=== PATIENT | female | born 1950 | race Caucasian/White ===

== ENCOUNTER 2024-07-17 11:54 | Emergency (ER) | payer OTHER, SELFPAY ==
--- NOTE | 2024-07-17 | ECG_ITS ---
Test Reason : CHEST PAIN Blood Pressure : / mmHG Vent. Rate : 063 BPM Atrial Rate : 063 BPM P-R Int : 142 ms QRS Dur : 074 ms QT Int : 440 ms P-R-T Axes : 044 044 013 degrees QTc Int : 450 ms Normal sinus rhythm Cannot rule out Anterior infarct , age undetermined Abnormal ECG No previous ECGs available Referred By: Generic ED Physician Electronically Signed By:SONYA HYATT MD
--- NOTE | ~2024-07-17 | XR_ITS ---
EXAMINATION: XR CHEST CLINICAL INFORMATION: Chest pain COMPARISON: None available. TECHNIQUE: Frontal view of the chest was obtained. FINDINGS: There is mild elevation of the left diaphragm. Patient is rotated slightly to the left. Heart size upper limits of normal. No infiltrates, effusions or lung masses are seen. XR/XR chest 1V IMPRESSION: No acute intrathoracic disease. Electronically signed by: Carlitos Benoit MD 07/17/2024 03:31 PM [facility]
[2024-07-17 12:03] VITALS: BP 129/77; BP 139/61; PULSE 60; PULSE 65; RESP 18; TEMP 36.6; O2SAT 98; BMI 27.4
--- NOTE | 2024-07-17 12:58 | ED_ITS ---
HPI - Chest Pain General Chief Complaint: Chest Pain Stated Complaint: CHEST PAIN/HEAVY BREATHING PER EMS Time Seen by Provider: 07/17/24 12:57 Source: patient, family (daughter), EMS and RN notes reviewed Mode of arrival: EMS Limitations: no limitations History of Present Illness ED Provider: Jesse HPI narrative: Patient is a 74-year-old female with history of dementia, paranoid delusions, COPD/emphysema, T2DM, chronic respiratory failure with hypoxia presenting to the ED from [facility] after an episode of chest pain/pressure and shortness of breath. Patient states that since her oxygen via [place] was decreased at [facility], she has been more short of breath. She also notes that the staff at [facility] are not bringing her inhalers as scheduled. She was given a breathing treatment and 324mg ASA prior to arrival, and patient states chest pain resolved with the ASA and has not returned since. She denies current shortness of breath. Daughter and HCP, is at bedside and reports that patient was recently admitted at [facility], at which time they placed her on a medication vacation, because she was taking medications from several different providers, none of whom were aware of each other. Daughter feels patient is not being cared for appropriately at [facility], is concerned she is not getting her medications as prescribed. MD complaint: chest pain Pertinent past history: other Onset (ago): hour(s) Timing of current episode: now resolved Onset: during rest Pain location: substernal Pain radiation: none Quality: heaviness Relieving factors: medication-other Associated symptoms: dyspnea Treatment prior to arrival: aspirin and oxygen Related Data Allergies Allergy/AdvReac Type Severity Reaction Status Date / Time oxycodone Allergy Anaphylaxis Verified 07/17/24 12:06 Review of Systems 2 Review of Systems: As per HPI. Yes all other systems are reviewed and are negative Constitutional: Constitutional: Reports as per HPI [facility] Social History Social History (System 10/14/22 @ 08:37 by Barbi Saldivar) Advance Directives: Yes Advance Directives on File: Yes Advance Directives Date on File: 07/17/24 Do you have a plan to hurt others: No Plan Physical Exam 2 Vital Signs: Vital Signs: Last Vital Signs Temp 98 F 07/17/24 12:03 Pulse 65 07/17/24 12:03 Resp 18 07/17/24 12:03 BP 139/61 11/04/24 12:03 Pulse Ox 98 07/17/24 12:03 O2 Del Method Nasal Cannula 07/17/24 12:03 Oxygen Flow Rate 3 07/17/24 12:03 BMI result Body Mass Index 27.4 Vital signs have been reviewed and appear to be correct. Blood pressure normal. Heart rate normal. Respiratory rate normal. Temperature normal. Oxygen saturation normal. Const: General: cooperative and no acute distress O rientation/consciousness: oriented to person, oriented to place, oriented to time and patient oriented x3 Limitations: no limitations HEENT: Head: Yes normocephalic and Yes atraumatic Ears: external ears normal General nose exam: Normal external nose present Face and sinus: Yes face symmetric Mouth: oropharynx normal and moist mucous membranes Throat: Yes uvula midline Eyes: Pupils: Equal, round and reactive pupils present Neck: Neck: Yes normal visual inspection and Yes supple Resp: Effort & Inspection: normal respiratory effort and able to speak in complete sentences Auscultation: diminished lung sounds diffuse Cardio: Rate: regular rate Rhythm: regular rhythm Heart sounds: S1 normal heart sound present and S2 normal heart sound present GI: Palpation (GI): Soft to palpation and nontender Auscultation: n ormoactive bowel sounds : General: Yes no CVA tenderness Back/Spine/Pelvis: Back: no CVA tenderness Skin: General skin exam: elasticity normal and turgor normal Neuro: General: oriented to person, oriented to place, oriented to time, patient oriented x3, moves all extremities, no focal motor deficits and CN's II- XI intact bilaterally Cranial nerves: Yes Equal, round and reactive pupils present Cognition (Neuro): normal cognition Extrem: General: Yes full ROM, Yes no pedal edema and Yes no calf tenderness Psych: Mental Status: mental status grossly normal Affect: normal affect Thought process: Normal thought process present Medical Decision Making Medical Decision Making MDM Narrative: Patient is a 74-year-old female with history of dementia, paranoid delusions, COPD/emphysema, T2DM, chronic respiratory failure with hypoxia presenting to the ED from [facility] after an episode of chest pain/pressure and shortness of breath. On exam patient is awake, A+Ox3, VS WNL, afebrile, normal neurological exam without focal deficits, physical exam findings as above. Given reported symptoms and physical exam findings, initial differential includes ACS, COPD exacerbation, viral illness. Review of [facility] EMR from recent visit notable for patient determined to have capacity on 07/07/[address] Hall. Labs notable for negative initial troponin,no delta on repeat. Viral serology negative. X-ray chest notable for no acute process, no pneumonia. My interpretation is in agreement with the radiologist's interpretation. Case discussed with Betzaida from . Due to patient's insurance, other rehab facilities that accept her insurance would be further away. Patient and daughter advised of this, and daughter states she would be unable to visit patient if she was any further away. Patient feel comfortable with discharge back to [facility] and has capacity to make this decision. Feel patient is stable for discharge back to [facility]. Patient and daughter are in agreement with this. Changed patient's inhaler orders from PRN to scheduled at patient and daughter's request. Differential Diagnosis Differential Diagnoses: The differential diagnosis associated with the presentation includes As per MDM. Admission/Observation Consideration of admission/observation: Escalation of care including admission/observation considered Patient would have been admitted to the hospital had their work up had any findings where hospital admission was appropriate and their clinical presentation warranted hospital admission. Consult Healthcare Provider vocational case manager Lab Data [facility] Lab Attestation statement: I reviewed the patient's lab results. As per MDM 07/17/24 14:12 07/17/24 14:12 Labs: Lab Results 07/17/24 07/17/24 Range/Units 14:12 15:40 WBC 8.3 (4.8-10.8) X10*3/uL RBC 4.46 (4.20-5.50) X10*6/uL Hgb 11.5 L (12.0-16.0) g/dl Hct 35.9 L (37.0-47.0) % MCV 80.5 (80.0-98.0) fL MCH 25.8 L (27.0-33.0) pg MCHC 32.0 (31.0-35.0) g/dl RDW 14.8 (11.0-16.0) % Plt Count 312 (160-400) X10*3/uL MPV 9.3 L (9.4-12.3) fL Immature Gran % (Auto) 0.4 (0.0-0.4) % Neut % (Auto) 73.0 (45-73) % Lymph % (Auto) 18.5 L (20-40) % Jennings % (Auto) 6.3 (2-11) % Eos % (Auto) 1.0 (0-4) % Baso % (Auto) 0.8 (0-2) % Lymph # (Auto) 1.5 (1.2-4.9) X10*3/uL Jennings # (Auto) 0.5 (0.1-1.2) X10*3/uL Eos # (Auto) 0.1 (0.0-0.4) X10*3/uL Baso # (Auto) 0.1 (0.0-0.2) X10*3/uL Abs Immat Gran (auto) 0.03 (0.00-0.03) X10*3/uL Absolute Neuts (auto) 6.1 (2.0-8.3) x10*3/uL Absolute Nucleated RBC 0.000 (0.0-0.012) X10*3/uL Nucleated RBC % (auto) 0.0 (0.0-0.2) /100WBC PT 11.2 (10.9-12.4) SEC INR 1.0 (0.9-1.1) Sodium 142 (135-145) mmol/L Potassium 4.8 (3.3-5.1) mmol/L Chloride 105 (96-108) mmol/L Carbon Dioxide 28 (22-29) mmol/L Anion Gap 14 (12-20) BUN 17 H (9-16) mg/dL Creatinine 0.86 (0.5-1.4) mg/dL Estim Creat Clear Calc 49.2 Estimated GFR > 60 Random Glucose 94 (60-115) mg/dL Calcium 10.2 (8.4-10.2) mg/dL Magnesium 2.0 (1.6-2.6) mg/dL Total Bilirubin 0.2 (0.0-1.0) mg/dL AST 29 (5-31) U/L ALT 17 (0-31) U/L Alkaline Phosphatase 58 (39-117) U/L Troponin I High Sens 4.6 6.0 (<3.5-17.0) ng/L B-Natriuretic Peptide 17 (<100) pg/mL Total Protein 6.7 (6.5-8.0) g/dL Albumin 4.1 (3.5-5.0) g/dL Influenza Type A (PCR) NEGATIVE (Negative) Influenza Type B (PCR) NEGATIVE (Negative) RSV RNA Qual (PCR) NEGATIVE (Negative) SARS-CoV-2 RNA (RT-PCR) NEGATIVE (Negative) Independent Interpretation I performed an independent interpretation of an: Plain X-Ray Interpretation: Chest x-ray is without evidence of acute disease, pneumonia. Radiology Impression Discussion of test interpretation with radiology: I have reviewed the radiologist's reading. Radiologist Impression: XR/XR chest 1V IMPRESSION: No acute intrathoracic disease. Independent Historian Clinical information obtained from an independent historian. History obtained from or confirmed by: Other (daughter, HCP) External Record Review External record reviewed: Inpatient record, Office record and Outpatient record Discharge Plan Discharge Clinical Impression: Chest pain Patient Disposition: Xfer Inpatient Rehab Fac Transfer Details: back to [facility] Instructions: Chest Pain (DC) Additional Instructions: Liudmila was evaluated in the emergency department today for chest pain. Her evaluation did not reveal evidence of conditions requiring emergent medical treatment at this time. We are recommending that her albuterol inhaler be administered Q4H scheduled and Combivent inhaler be administered 4 times per day scheduled and NOT PRN/as needed. Follow up with primary care provider. Return to the ED with new or worsening symptoms. Print Language: Bulgarian
[2024-07-17 14:20] LABS: MANUAL DIFF FLAG NO
[2024-07-17 14:21] LABS: Basophils Absolute Auto 0.1 X10*3/uL (0.0-0.2); Basophils Percent Auto 0.8 % (0-2); Eosinophils Absolute Auto 0.1 X10*3/uL (0.0-0.4); Hematocrit 35.9 % (37.0-47.0); Hemoglobin 11.5 g/dl (12.0-16.0); Imm Gran Abs Auto 0.03 X10*3/uL (0.00-0.03); Imm Gran Pct Auto 0.4 % (0.0-0.4); Lymphocytes Absolute Auto 1.5 X10*3/uL (1.2-4.9); Lymphocytes Percent Auto 18.5 % (20-40); Mean Corpuscular Hemoglobin 25.8 pg (27.0-33.0); Mean Corpuscular Volume 80.5 fL (80.0-98.0); Mean Platelet Volume 9.3 fL (9.4-12.3); Monocytes Absolute Auto 0.5 X10*3/uL (0.1-1.2); Monocytes Percent Auto 6.3 % (2-11); Neutrophils Absolute Auto 6.1 x10*3/uL (2.0-8.3); Platelet Count 312 X10*3/uL (160-400); Red Blood Count 4.46 X10*6/uL (4.20-5.50); Red Cell Distribution Width 14.8 % (11.0-16.0); White Blood Count 8.3 X10*3/uL (4.8-10.8)
[2024-07-17 14:37] LABS: Prothrombin Time 11.2 SEC (10.9-12.4)
[2024-07-17 14:38] LABS: Alanine Aminotransferase 17 U/L (0-31); Albumin Level 4.1 g/dL (3.5-5.0); Alkaline Phosphatase 58 U/L (39-117); Anion Gap 14 (12-20); Aspartate Amino Transferase 29 U/L (5-31); Bilirubin Total 0.2 mg/dL (0.0-1.0); Blood Urea Nitrogen 17 mg/dL (9-16); Calcium 10.2 mg/dL (8.4-10.2); Carbon Dioxide 28 mmol/L (22-29); Chloride 105 mmol/L (96-108); Creatinine Clr Calc Pharmacy 49.2; Estimated Glomerular Filt Rate > 60; Glucose Random 94 mg/dL (60-115); Potassium 4.8 mmol/L (3.3-5.1); Sodium 142 mmol/L (135-145); Total Protein 6.7 g/dL (6.5-8.0)
[2024-07-17 14:43] LABS: B Type Natriuretic Peptide 17 pg/mL (<100)
[2024-07-17 14:47] LABS: Troponin-I High Sensitivity 4.6 ng/L (<3.5-17.0)
[2024-07-17 15:04] LABS: Influenza A PCR NEGATIVE (Negative); Influenza B PCR NEGATIVE (Negative); Resp Syncy Virus RNA Qual PCR NEGATIVE (Negative); SARS COV2 PCR INHOUSE NEGATIVE (Negative)
[2024-07-17 16:50] VITALS: BP 198/78; PULSE 85; RESP 20; TEMP 36.6; O2SAT 100
[2024-07-17 17:55] VITALS: BP 198/78; PULSE 85
[2024-07-17] MEDS: Metoprolol Tartrate 25 MG TABLET PO (17:55)
[2024-07-17] MEDS: Gabapentin 400 MG CAPSULE PO (17:55)
[2024-07-17] MEDS: Albuterol Sulfate (0.083%) 2.5 MG/3 ML VIAL.NEB 5 MG INHALE (18:16)
[2024-07-17 18:20] VITALS: PULSE 102; RESP 18; O2SAT 99
--- NOTE | 2024-07-17 18:40 | PC.NURSE ---
Rn report given to [facility] in preparation for patient to return to [facility] facility
--- NOTE | 2024-07-17 19:56 | MHC.EDTECH ---
Walked patient to bathroom with walker
[2024-07-17 21:34] VITALS: BP 143/68; PULSE 78; RESP 16; TEMP 36.8; O2SAT 99
== END 2024-07-17 21:35 | disposition skilled nursing facility (03) ==
PROVIDERS: Registered Nurse Emergency; Emergency Provider Student in an Organized Health Care Education/Training Program; PCP Physician Assistant
DX: R07.9 Chest pain, unspecified (principal); R06.02 Shortness of breath; F03.90 Unspecified dementia, unspecified severity, without behavioral disturbance, psychotic disturbance, mood disturbance, and anxiety; E11.9 Type 2 diabetes mellitus without complications; J44.9 Chronic obstructive pulmonary disease, unspecified; Z03.818 Encounter for observation for suspected exposure to other biological agents ruled out
CPT/HCPCS: 0241U; 36415; 71045; 80053; 83735; 83880; 84484; 85025; 85610; 93005; 94640; 99284; 99285

== ENCOUNTER → 2024-07-17 11:57 | Outpatient (BNV) | payer OTHER, SELFPAY | PROVIDERS: Emergency Provider Student in an Organized Health Care Education/Training Program; PCP Physician Assistant; Visit Provider Internal Medicine Cardiovascular Disease | DX: R94.31 Abnormal electrocardiogram [ECG] [EKG] (principal) | CPT/HCPCS: 93010 ==

== ENCOUNTER 2025-01-14 00:28 | Emergency (ER) | payer MEDICARE, SELFPAY ==
[2025-01-14] VITALS (8 sets, daily range): BP systolic 109–163; BP diastolic 50–95; PULSE 74–98; RESP 15–25; TEMP 36.7–37.1; O2SAT 91–100; BMI 30.3
--- NOTE | 2025-01-14 | ECG_ITS ---
Test Reason : WEAKNESS Blood Pressure : */* mmHG Vent. Rate : 81 BPM Atrial Rate : 81 BPM P-R Int : 120 ms QRS Dur : 66 ms QT Int : 384 ms P-R-T Axes : 45 40 32 degrees QTcB Int : 446 ms Normal sinus rhythm Low voltage QRS Cannot rule out Anterior infarct (cited on or before 17-Jul-2024) Abnormal ECG When compared with ECG of 17-Jul-2024 11:57, No significant change was found Referred By: Generic ED Physician Electronically Signed By: EVAN AHMADI
--- NOTE | ~2025-01-14 | XR_ITS ---
CLINICAL HISTORY: prod cough sob 1 view chest x-ray Comparison: CR/OK/SR - XR CHEST 1V - 07/17/24 14:28 EST Findings: No consolidation or effusion. Chronic asymmetric elevation of the left hemidiaphragm. Moderate cardiomegaly. No acute fracture. IMPRESSION: 1. No acute findings. This document has been electronically signed by: Eugene Sr MD on 01/14/2025 01:02:18
--- NOTE | ~2025-01-14 | XR_ITS ---
EXAMINATION: XR CHEST CLINICAL INFORMATION: Fever, diarrhea, R/O pneumonia COMPARISON: 01/14/2025, 07/17/2024. TECHNIQUE: Frontal view of the chest was obtained. FINDINGS: Mild eventration left hemidiaphragm, unchanged. There is mild cardiac enlargement. The mediastinal and hilar contours appear normal. Aortic mural calcification. Shift of the anterior junction line to the left, a stable feature from the prior examination indicating hyperaeration of the right lung. The lungs are otherwise clear bilaterally. No pneumothorax or effusion. No focal osseous or soft tissue abnormality. There are degenerative changes in the shoulder joints and spine. XR/XR chest 1V IMPRESSION: Mild cardiomegaly. Hyperaeration of the right lung, unchanged No active pulmonary disease. Overall, No change from 01/14/2025. Electronically signed by: Didier Berry MD 01/16/2025 08:12 AM EDT
[2025-01-14 01:08] LABS: MANUAL DIFF FLAG NO
[2025-01-14 01:09] LABS: Basophils Absolute Auto 0.1 X10*3/uL (0.0-0.2); Basophils Percent Auto 0.6 % (0-2); Eosinophils Absolute Auto 0.2 X10*3/uL (0.0-0.4); Eosinophils Percent Auto 2.2 % (0-4); Hematocrit 35.9 % (37.0-47.0); Hemoglobin 11.1 g/dl (12.0-16.0); Imm Gran Abs Auto 0.04 X10*3/uL (0.00-0.03); Imm Gran Pct Auto 0.5 % (0.0-0.4); Lymphocytes Absolute Auto 2.1 X10*3/uL (1.2-4.9); Lymphocytes Percent Auto 24.3 % (20-40); Mean Corpuscular HGB Conc 30.9 g/dl (31.0-35.0); Mean Corpuscular Hemoglobin 24.9 pg (27.0-33.0); Mean Corpuscular Volume 80.5 fL (80.0-98.0); Mean Platelet Volume 9.3 fL (9.4-12.3); Monocytes Absolute Auto 0.6 X10*3/uL (0.1-1.2); Monocytes Percent Auto 6.6 % (2-11); Neutrophils Absolute Auto 5.6 x10*3/uL (2.0-8.3); Neutrophils Percent Auto 65.8 % (45-73); Platelet Count 292 X10*3/uL (160-400); Red Blood Count 4.46 X10*6/uL (4.20-5.50); Red Cell Distribution Width 15.7 % (11.0-16.0); White Blood Count 8.5 X10*3/uL (4.8-10.8)
[2025-01-14 01:26] LABS: Alanine Aminotransferase 52 U/L (0-31); Albumin Level 4.1 g/dL (3.5-5.0); Alkaline Phosphatase 64 U/L (39-117); Anion Gap 14 (12-20); Aspartate Amino Transferase 59 U/L (5-31); Bilirubin Total 0.4 mg/dL (0.0-1.0); Blood Urea Nitrogen 15 mg/dL (9-16); Calcium 9.5 mg/dL (8.4-10.2); Carbon Dioxide 29 mmol/L (22-29); Chloride 107 mmol/L (96-108); Creatinine Clr Calc Pharmacy 45.8; Estimated Glomerular Filt Rate 56; Ethanol < 10 mg/dL; Glucose Random 100 mg/dL (60-115); Potassium 4.5 mmol/L (3.3-5.1); Sodium 145 mmol/L (135-145); Total Protein 6.6 g/dL (6.5-8.0); Troponin-I High Sensitivity 11.6 ng/L (<3.5-17.0)
[2025-01-14 01:45] LABS: Influenza A PCR NEGATIVE (Negative); Influenza B PCR NEGATIVE (Negative); Resp Syncy Virus RNA Qual PCR NEGATIVE (Negative); SARS COV2 PCR INHOUSE NEGATIVE (Negative)
--- NOTE | 2025-01-14 04:02 | ED_ITS ---
HPI - General Adult General Chief complaint: Weakness Stated complaint: Flu like sx, NPO, n/v, cough x2 days Time Seen by Provider: 01/14/25 03:48 Source: patient and EMS Mode of arrival: EMS Limitations: other History of Present Illness ED Provider: Dr. Renetta Norris HPI narrative: Patient comes to the emergency room via ambulance from home. According to the patient, she lives by herself. Patient reported to EMS that she called them because she had weakness, nausea, cough. Per EMS, patient uses oxygen 3 L at baseline. Patient states that she is here because she has bugs coming out of her nails. When I tried to speak to the patient, patient states that he has been waiting a week. Patient states that she has been hoping from hospital to hospital. Patient states that her patient wrist splint is contaminant with COVID and needs to be removed before she gets other people sick. Also, patient states that somebody insert micro chips in her back and in her fingers. Related Data Home Medications ?Medication ?Instructions ?Recorded ?Confirmed acetaminophen 650 mg 650 mg PO DAILY 01/15/25 01/15/25 tablet,extended release albuterol sulfate 90 mcg/actuation 2 puff inhalation Q4H PRN wheezing 01/15/25 01/15/25 aerosol inhaler cholecalciferol (vitamin D3) 10 20 mcg PO DAILY 01/15/25 01/15/25 mcg (400 unit) tablet (Vitamin D3) donepezil 10 mg tablet 10 mg PO DAILY 01/15/25 01/15/25 duloxetine 20 mg capsule,delayed 20 mg PO BID 01/15/25 01/15/25 release gabapentin 400 mg capsule 400 mg PO TID 01/15/25 01/15/25 lorazepam 0.5 mg tablet 1 mg PO TID 01/15/25 01/15/25 metformin 500 mg tablet,extended 500 mg PO BID 01/15/25 01/15/25 release 24 hr metoprolol tartrate 25 mg tablet 25 mg PO BID 01/15/25 01/15/25 quetiapine 100 mg tablet 100 mg PO BEDTIME 01/15/25 01/15/25 quetiapine 25 mg tablet 25 mg PO BEDTIME 01/15/25 01/15/25 Allergies Allergy/AdvReac Type Severity Reaction Status Date / Time oxycodone Allergy Anaphylaxis Verified 01/14/25 00:33 prednisone AdvReac Anaphylaxis Verified 01/14/25 00:33 Review of Systems 2 Review of Systems: Constitutional : No Weight loss, No Fever, No Chills, No Night Sweats, No Fatigue, No Malaise ENT/Mouth : No Hearing loss, No Ear Pain, No Nasal Congestion, No Sinus Pain, No Hoarseness, No sore throat, No Rhinorrhea, No Swallowing Difficulty Eyes: No Eye Pain, No Swelling, No Redness, No Foreign Body, No Discharge, No Vision Changes Cardiovascular : No Chest Pain, No SOB, No Dyspnea on Exertion, No Orthopnea, No Edema, No Palpitations Respiratory : Patient complaining of cough, dyspnea Gastrointestinal : No Nausea, No Vomiting, No Diarrhea, No Constipation, No abdominal Pain, No Hematochezia, No Melena Genitourinary : no irregular bleeding, No Dysuria, No Urinary Frequency, No Hematuria, No Urinary Incontinence, No Urgency, No Flank Pain, No Urinary Flow Changes, No Hesitancy Musculoskeletal : No joint pain, No Myalgias, No Joint Swelling Skin : No Skin Lesions, No rash Neuro : No Weakness, No Numbness, No Paresthesias, No Loss of Consciousness, No Dizziness, No Headache Psych : Patient complaining of having chips in her back and her fingers, seeing bugs crawling underneath her nails Heme/Lymph: No Bruising, No Bleeding,No Lymphadenopathy Endocrine : No Polyuria, No Polydipsia, No Temperature Intolerance [facility] Past Medical History Medical History (Updated 01/16/25 @ 15:00 by Lita Chang NP) COPD (chronic obstructive pulmonary disease) Social History Social History (System 10/14/22 @ 08:37 by Barbi Saldivar) Smoked in Last 30 Days: No Use of substances other than those prescribed or required for medical reasons: No Advance Directives: Yes Advance Directives on File: Yes Advance Directives Date on File: 07/17/24 Physical Exam ED Vital Signs: Vital Signs - 24 hr 01/15/25 19:11 01/15/25 21:18 01/15/25 23:37 Temperature 98.9 F 98.4 F 98.0 F Pulse Rate 94 100 109 H Respiratory Rate 16 20 20 Blood Pressure 176/79 H 163/82 H 145/73 H Pulse Oximetry 96 96 98 Oxygen Delivery Method Room Air Room Air Room Air 01/16/25 06:30 01/16/25 08:38 01/16/25 10:09 Temperature 100.1 F 99.1 F 100 F Pulse Rate 89 85 Respiratory Rate 18 18 Blood Pressure 147/77 H 140/70 H Pulse Oximetry 96 97 Oxygen Delivery Method Room Air Room Air 01/16/25 11:49 01/16/25 14:49 Temperature 99.7 F 98.7 F Pulse Rate 85 Respiratory Rate 16 Blood Pressure 147/76 H Pulse Oximetry 96 Oxygen Delivery Method Room Air BMI result Body Mass Index 30.3 Course Course Course Narrative: All of patient's labs and imaging pending On arrival, patient's labs are within normal limits, patient is saturating 100% on her usual 3 L nasal cannula Patient's seems to be very paranoid, complaining of micro chips being in still in her fingertips and back, seeing bugs crawling from her nails. Reevaluation(s) Reevaluation #1: Time: 12:44 Date: 01/15/25 Provider: PATRICIA Botello Patient in physician observation for psychiatric evaluation.? No acute events reported overnight. No current complaints. VS stable.? Care team pending collateral information from family. Patient remains to be in physician observation Will continue to monitor. Reevaluation #2: Time: 21:52 Date: 01/15/25 Provider: Alex Flores MD Patient in physician observation for psychiatric evaluation.? Patient had a bowel movement in the bed and was diaphoretic. EKG was performed and there was no acute ST segment elevation or depression. I did order a CBC, CMP and troponin on the patient. Patient has been evaluated by the care team who felt that the patient is exhibiting symptoms have dementia which include paranoid delusion and hallucinations which was reported as her baseline for years according to her daughter. Recommended [place] cognitive assessment (MoCA) and [place] cognitive level screening (ACLS) to determine capacity. I also recommended case management on this patient. My interpretation of the patient's 12 EKG done on 01/15/2025 at 21:36 hours is as follows: Normal sinus rhythm rate of 98, normal NM interval, QRS duration QTC interval, no ST segment elevation, no ST segment depression, Q-waves V1 and V2, no significant T-wave abnormalities. On the previous EKG dated 01/14/2025 at 00:50 hours, the patient had inverted T-waves V1, V2 and V3 which have resolved. No other acute changes noted. Time: 02:27 Date: 01/16/25 Provider: Alex Flores MD Patient in physician observation for case management needs. My interpretation patient's laboratory evaluation is as follows: WBC elevated 12,800. H&H was unchanged from previous 11.6 and 35.6. CMP revealed an elevated AST and ALT 35 and 33 improved from previous. Glucose elevated 136. Lipase was normal. High sensitive troponin I was detectable but not elevated 12.0 this was similar to 01/14/2025 when it was 11.6. I did order repeat troponin. Nurse told me that the patient had a soft bowel movement and did get slightly diaphoretic after her bowel movement. Time: 03:41 Date: 01/16/25 Provider: Alex Flores MD Patient in physician observation for case management needs. Urinalysis from 01/14/2025 was negative for infection. Patient's repeat 3 hour high sensitive troponin and I did not reveal any significant delta at 13.3. At this time I do not think that the patient has diaphoresis is caused by myocardial infarction or myocardial ischemia and is most likely related to straining when moving her bowels. Time: 08:03 Date: 01/16/25 Provider: PATRICIA Marie Patient in physician observation for case management needs. No acute events reported overnight.? No current issues or complaints. VS stable. Patient is pending PT/CM eval. Will continue to monitor. Time: 15:38 Date: 01/16/25 Provider: PATRICIA Marie Physician observation ended at 1538. Patient has been cleared for discharge by the CARE team -patient does not meet inpatient psych level of care. Patient to be discharged home with VNA for prison. Her STILL OPERATOR HELPER is at bedside and will be transporting her home. She has remained stable. Agreeable to discharge home. She has been provided out with outpatient resources/ mental health assistance. Medications Administered Discontinued Medications Generic Name Dose Route Start Last Admin Trade Name Freq PRN Reason Stop Dose Admin Acetaminophen 975 mg 01/16/25 06:35 01/16/25 07:23 Acetaminophen 325 Mg Tablet PO 01/16/25 06:36 975 mg ONCE STA Administration Sodium Chloride 1,000 mls @ 999 mls/hr 01/16/25 06:33 01/16/25 08:52 Ns IV 01/16/25 07:33 Infused .Q1H1M STA Infusion Medical Decision Making Medical Decision Making [facility] Narrative: My interpretation of labs: Patient's hematology and chemistry did not show any acute abnormality, LFTs within normal limits, serology negative, chest x-ray does not show any acute abnormality. ETOH negative. Respiratory mullen, patient's seems to be at baseline. No acute findings. Patient is not wheezing, not having any shortness of breath. Patient is not been complaining of respiratory symptoms. Patient is more preoccupied with the micro chips being in her back and fingertips and bugs crawling We do not have any prior information from the patient and patient is not giving any significant information. Patient was picked up from home, it is unclear if she lives by herself or with someone. Patient is in no shape to return home by herself. At this time, medical admission not indicated. Care team consult and case management will be consulted. Urinalysis pending. Patient was noted to have a fever in the overflow area. The temperature was noted as 100.1. Patient's white count slightly elevated at 12.8 which is new when compared to 2 days ago. Patient electrolytes was grossly unchanged lactate is 1.1 no evidence for severe sepsis. Patient is showed no gross evidence of infection. Patient is respiratory panel was done it showed no acute viral illness detected. Patient chest x-ray showed no focal infiltrate. The final radiology reading was IMPRESSION: Mild cardiomegaly. Hyperaeration of the right lung, unchanged No active pulmonary disease. Overall, No change from 01/14/2025. Patient's repeat EKG done last night was essentially unchanged. Temperature this morning was 100. Question significance. Patient is awake alert in no acute distress. No neck pain no signs of meningitis. With a MAP of 118 no hypotension. Stool is still pending. Currently awaiting care team disposition. Differential Diagnosis Differential Diagnoses: The differential diagnosis associated with the presentation includes (Chronic lung disease, UTI, paranoia, delusions) Admission/Observation Consideration of admission/observation: Escalation of care including admission/observation considered (Patient will likely need inpatient level of care for Psychiatry) Lab Data [facility] Lab Attestation statement: I reviewed the patient's lab results. 01/15/25 22:03 01/15/25 22:03 Labs: Lab Results 01/14/25 01/14/25 01/14/25 Range/Units 00:59 01:01 05:16 WBC 8.5 (4.8-10.8) X10*3/uL RBC 4.46 (4.20-5.50) X10*6/uL Hgb 11.1 L (12.0-16.0) g/dl Hct 35.9 L (37.0-47.0) % MCV 80.5 (80.0-98.0) fL MCH 24.9 L (27.0-33.0) pg MCHC 30.9 L (31.0-35.0) g/dl RDW 15.7 (11.0-16.0) % Plt Count 292 (160-400) X10*3/uL MPV 9.3 L (9.4-12.3) fL Immature Gran % (Auto) 0.5 H (0.0-0.4) % Neut % (Auto) 65.8 (45-73) % Lymph % (Auto) 24.3 (20-40) % [place] % (Auto) 6.6 (2-11) % Eos % (Auto) 2.2 (0-4) % Baso % (Auto) 0.6 (0-2) % Lymph # (Auto) 2.1 (1.2-4.9) X10*3/uL [place] # (Auto) 0.6 (0.1-1.2) X10*3/uL Eos # (Auto) 0.2 (0.0-0.4) X10*3/uL Baso # (Auto) 0.1 (0.0-0.2) X10*3/uL Abs Immat Gran (auto) 0.04 H (0.00-0.03) X10*3/uL Absolute Neuts (auto) 5.6 (2.0-8.3) x10*3/uL Absolute Nucleated RBC 0.000 (0.0-0.012) X10*3/uL Nucleated RBC % (auto) 0.0 (0.0-0.2) /100WBC Sodium 145 (135-145) mmol/L Potassium 4.5 (3.3-5.1) mmol/L Chloride 107 (96-108) mmol/L Carbon Dioxide 29 (22-29) mmol/L Anion Gap 14 (12-20) BUN 15 (9-16) mg/dL Creatinine 0.97 (0.5-1.4) mg/dL Estim Creat Clear Calc 45.8 Estimated GFR 56 POC Glucose (60-115) mg/dL Random Glucose 100 (60-115) mg/dL Lactic Acid (0.5-2.0) mmol/L Calcium 9.5 D (8.4-10.2) mg/dL Total Bilirubin 0.4 (0.0-1.0) mg/dL AST 59 H (5-31) U/L ALT 52 H (0-31) U/L Alkaline Phosphatase 64 (39-117) U/L Troponin I High Sens 11.6 D (<3.5-17.0) ng/L Total Protein 6.6 (6.5-8.0) g/dL Albumin 4.1 (3.5-5.0) g/dL Lipase (8-78) U/L Urine Color Yellow Urine Appearance Clear Urine pH 5.5 (5.0-9.0) Ur Specific [place] 1.020 (1.005-1.025) Urine Protein Trace (Neg-Trace) mg/dL Urine Glucose (UA) Negative (Negative) mg/dL Urine Ketones Trace (Negative) mg/dL Urine Blood Negative (Negative) Urine Nitrite Negative (Negative) Ur Leukocyte Esterase Negative (Negative) Urine RBC 0-2 (0-2) /HPF Urine WBC 0-5 (0-5) /HPF Ur Squamous Epith Cells 0-2 (0-2) /HPF Other Crystals Urine Bacteria None Seen (None Seen) Hyaline Casts 0-2 (0-2) /LPF Urine Opiates Screen Not Detected (Not Detect) Ur Buprenorphine Scrn Not Detected (Not Detect) ng/mL Ur Oxycodone Screen Not Detected (Not Detect) ng/mL Urine Methadone Screen Not Detected (Not Detect) ng/mL Urine Fentanyl Screen Not Detected (Not Detect) Ur Barbiturates Screen Not Detected (Not Detect) Ur Phencyclidine Scrn Not Detected (Not Detect) Ur Amphetamines Screen Not Detected (Not Detect) U Benzodiazepines Scrn Not Detected (Not Detect) Urine Cocaine Screen Not Detected (Not Detect) U Marijuana (THC) Screen Not Detected (Not Detect) Ethyl Alcohol < 10 mg/dL Respiratory Panel Conte Adenovirus (Rapid PCR) (Not Detect.) B.pert (TEM-PCR) (Not Detect.) B.parapertussis DNA PCR (Not Detect.) C. pneumoniae DNA (PCR) (Not Detect.) Coronavirus OC43 (PCR) (Not Detect.) Coronavirus HKU1 (PCR) (Not Detect.) Coronavirus 229E (PCR) (Not Detect.) Coronavirus NL63 (PCR) (Not Detect.) Human Metapneumovir PCR (Not Detect.) Influenza A (RT-PCR) (Not Detect.) Influenza A (H1) PCR (Not Detect.) Influ A (H1/09) PCR (Not Detect.) Influenza A (H3) PCR (Not Detect.) Influenza Type A (PCR) NEGATIVE (Negative) Influenza B (RT-PCR) (Not Detect.) Influenza Type B (PCR) NEGATIVE (Negative) M. pneumoniae (PCR) (Not Detect.) Parainfluenza 1 (PCR) (Not Detect.) Parainfluenza 2 (PCR) (Not Detect.) Parainfluenza 3 (PCR) (Not Detect.) Parainfluenza 4 (PCR) (Not Detect.) RSV (PCR) (Not Detect.) RSV RNA Qual (PCR) NEGATIVE (Negative) Entero/Rhino (PCR) (Not Detect.) SARS-CoV-2 RNA (RT-PCR) NEGATIVE (Negative) 01/15/25 01/15/25 01/16/25 Range/Units 21:29 22:03 02:38 WBC 12.8 H (4.8-10.8) X10*3/uL RBC 4.62 (4.20-5.50) X10*6/uL Hgb 11.6 L (12.0-16.0) g/dl Hct 35.6 L (37.0-47.0) % MCV 77.1 L (80.0-98.0) fL MCH 25.1 L (27.0-33.0) pg MCHC 32.6 (31.0-35.0) g/dl RDW 15.2 (11.0-16.0) % Plt Count 316 (160-400) X10*3/uL MPV 9.1 L (9.4-12.3) fL Immature Gran % (Auto) 0.3 (0.0-0.4) % Neut % (Auto) 85.7 H (45-73) % Lymph % (Auto) 8.5 L (20-40) % [place] % (Auto) 5.1 (2-11) % Eos % (Auto) 0.2 (0-4) % Baso % (Auto) 0.2 (0-2) % Lymph # (Auto) 1.1 L (1.2-4.9) X10*3/uL [place] # (Auto) 0.7 (0.1-1.2) X10*3/uL Eos # (Auto) 0.0 (0.0-0.4) X10*3/uL Baso # (Auto) 0.0 (0.0-0.2) X10*3/uL Abs Immat Gran (auto) 0.04 H (0.00-0.03) X10*3/uL Absolute Neuts (auto) 11.0 H (2.0-8.3) x10*3/uL Absolute Nucleated RBC 0.000 (0.0-0.012) X10*3/uL Nucleated RBC % (auto) 0.0 (0.0-0.2) /100WBC Sodium 141 (135-145) mmol/L Potassium 3.7 (3.3-5.1) mmol/L Chloride 104 (96-108) mmol/L Carbon Dioxide 25 (22-29) mmol/L Anion Gap 16 (12-20) BUN 16 (9-16) mg/dL Creatinine 0.83 (0.5-1.4) mg/dL Estim Creat Clear Calc 53.6 Estimated GFR > 60 POC Glucose 132 H (60-115) mg/dL Random Glucose 136 H (60-115) mg/dL Lactic Acid (0.5-2.0) mmol/L Calcium 9.1 (8.4-10.2) mg/dL Total Bilirubin 0.3 (0.0-1.0) mg/dL AST 35 H (5-31) U/L ALT 33 H (0-31) U/L Alkaline Phosphatase 65 (39-117) U/L Troponin I High Sens 12.0 13.3 (<3.5-17.0) ng/L Total Protein 6.5 (6.5-8.0) g/dL Albumin 4.0 (3.5-5.0) g/dL Lipase 58 (8-78) U/L Urine Color Urine Appearance Urine pH (5.0-9.0) Ur Specific [place] (1.005-1.025) Urine Protein (Neg-Trace) mg/dL Urine Glucose (UA) (Negative) mg/dL Urine Ketones (Negative) mg/dL Urine Blood (Negative) Urine Nitrite (Negative) Ur Leukocyte Esterase (Negative) Urine RBC (0-2) /HPF Urine WBC (0-5) /HPF Ur Squamous Epith Cells (0-2) /HPF Other Crystals Urine Bacteria (None Seen) Hyaline Casts (0-2) /LPF Urine Opiates Screen (Not Detect) Ur Buprenorphine Scrn (Not Detect) ng/mL Ur Oxycodone Screen (Not Detect) ng/mL Urine Methadone Screen (Not Detect) ng/mL Urine Fentanyl Screen (Not Detect) Ur Barbiturates Screen (Not Detect) Ur Phencyclidine Scrn (Not Detect) Ur Amphetamines Screen (Not Detect) U Benzodiazepines Scrn (Not Detect) Urine Cocaine Screen (Not Detect) U Marijuana (THC) Screen (Not Detect) Ethyl Alcohol mg/dL Respiratory Panel Conte Adenovirus (Rapid PCR) (Not Detect.) B.pert (TEM-PCR) (Not Detect.) B.parapertussis DNA PCR (Not Detect.) C. pneumoniae DNA (PCR) (Not Detect.) Coronavirus OC43 (PCR) (Not Detect.) Coronavirus HKU1 (PCR) (Not Detect.) Coronavirus 229E (PCR) (Not Detect.) Coronavirus NL63 (PCR) (Not Detect.) Human Metapneumovir PCR (Not Detect.) Influenza A (RT-PCR) (Not Detect.) Influenza A (H1) PCR (Not Detect.) Influ A (H1/09) PCR (Not Detect.) Influenza A (H3) PCR (Not Detect.) Influenza Type A (PCR) (Negative) Influenza B (RT-PCR) (Not Detect.) Influenza Type B (PCR) (Negative) M. pneumoniae (PCR) (Not Detect.) Parainfluenza 1 (PCR) (Not Detect.) Parainfluenza 2 (PCR) (Not Detect.) Parainfluenza 3 (PCR) (Not Detect.) Parainfluenza 4 (PCR) (Not Detect.) RSV (PCR) (Not Detect.) RSV RNA Qual (PCR) (Negative) Entero/Rhino (PCR) (Not Detect.) SARS-CoV-2 RNA (RT-PCR) (Negative) 01/16/25 01/16/25 01/16/25 Range/Units 06:52 08:30 08:54 WBC (4.8-10.8) X10*3/uL RBC (4.20-5.50) X10*6/uL Hgb (12.0-16.0) g/dl Hct (37.0-47.0) % MCV (80.0-98.0) fL MCH (27.0-33.0) pg MCHC (31.0-35.0) g/dl RDW (11.0-16.0) % Plt Count (160-400) X10*3/uL MPV (9.4-12.3) fL Immature Gran % (Auto) (0.0-0.4) % Neut % (Auto) (45-73) % Lymph % (Auto) (20-40) % [place] % (Auto) (2-11) % Eos % (Auto) (0-4) % Baso % (Auto) (0-2) % Lymph # (Auto) (1.2-4.9) X10*3/uL [place] # (Auto) (0.1-1.2) X10*3/uL Eos # (Auto) (0.0-0.4) X10*3/uL Baso # (Auto) (0.0-0.2) X10*3/uL Abs Immat Gran (auto) (0.00-0.03) X10*3/uL Absolute Neuts (auto) (2.0-8.3) x10*3/uL Absolute Nucleated RBC (0.0-0.012) X10*3/uL Nucleated RBC % (auto) (0.0-0.2) /100WBC Sodium (135-145) mmol/L Potassium (3.3-5.1) mmol/L Chloride (96-108) mmol/L Carbon Dioxide (22-29) mmol/L Anion Gap (12-20) BUN (9-16) mg/dL Creatinine (0.5-1.4) mg/dL Estim Creat Clear Calc Estimated GFR POC Glucose (60-115) mg/dL Random Glucose (60-115) mg/dL Lactic Acid 1.1 (0.5-2.0) mmol/L Calcium (8.4-10.2) mg/dL Total Bilirubin (0.0-1.0) mg/dL AST (5-31) U/L ALT (0-31) U/L Alkaline Phosphatase (39-117) U/L Troponin I High Sens (<3.5-17.0) ng/L Total Protein (6.5-8.0) g/dL Albumin (3.5-5.0) g/dL Lipase (8-78) U/L Urine Color Dark Yellow Urine Appearance Cloudy Urine pH 5.5 (5.0-9.0) Ur Specific [place] >= 1.030 H (1.005-1.025) Urine Protein 30 (1+) H (Neg-Trace) mg/dL Urine Glucose (UA) 100 H (Negative) mg/dL Urine Ketones 15 (Negative) mg/dL Urine Blood Negative (Negative) Urine Nitrite Negative (Negative) Ur Leukocyte Esterase Negative (Negative) Urine RBC 0-2 (0-2) /HPF Urine WBC 0-5 (0-5) /HPF Ur Squamous Epith Cells 3-5 (0-2) /HPF Other Crystals Present Urine Bacteria Trace (None Seen) Hyaline Casts 0-2 (0-2) /LPF Urine Opiates Screen (Not Detect) Ur Buprenorphine Scrn (Not Detect) ng/mL Ur Oxycodone Screen (Not Detect) ng/mL Urine Methadone Screen (Not Detect) ng/mL Urine Fentanyl Screen (Not Detect) Ur Barbiturates Screen (Not Detect) Ur Phencyclidine Scrn (Not Detect) Ur Amphetamines Screen (Not Detect) U Benzodiazepines Scrn (Not Detect) Urine Cocaine Screen (Not Detect) U Marijuana (THC) Screen (Not Detect) Ethyl Alcohol mg/dL Respiratory Panel Conte See Note Adenovirus (Rapid PCR) Not Detected (Not Detect.) B.pert (TEM-PCR) Not Detected (Not Detect.) B.parapertussis DNA PCR Not Detected (Not Detect.) C. pneumoniae DNA (PCR) Not Detected (Not Detect.) Coronavirus OC43 (PCR) Not Detected (Not Detect.) Coronavirus HKU1 (PCR) Not Detected (Not Detect.) Coronavirus 229E (PCR) Not Detected (Not Detect.) Coronavirus NL63 (PCR) Not Detected (Not Detect.) Human Metapneumovir PCR Not Detected (Not Detect.) Influenza A (RT-PCR) Not Detected (Not Detect.) Influenza A (H1) PCR Not Detected (Not Detect.) Influ A (H1/09) PCR Not Detected (Not Detect.) Influenza A (H3) PCR Not Detected (Not Detect.) Influenza Type A (PCR) (Negative) Influenza B (RT-PCR) Not Detected (Not Detect.) Influenza Type B (PCR) (Negative) M. pneumoniae (PCR) Not Detected (Not Detect.) Parainfluenza 1 (PCR) Not Detected (Not Detect.) Parainfluenza 2 (PCR) Not Detected (Not Detect.) Parainfluenza 3 (PCR) Not Detected (Not Detect.) Parainfluenza 4 (PCR) Not Detected (Not Detect.) RSV (PCR) Not Detected (Not Detect.) RSV RNA Qual (PCR) (Negative) Entero/Rhino (PCR) Not Detected (Not Detect.) SARS-CoV-2 RNA (RT-PCR) Not Detected (Negative) Critical Care Time Critical Care Time Critical Care Time: Yes Total Critical Care Time: 60 Attestation: I have personally provided critical care time. Time includes review of lab data, radiology results, discussion with consultants, and monitoring for potential decompensation. Intervention performed as documented. Discharge Plan Discharge Clinical Impression: Dyspnea, Paranoid, Delusional ideas Patient Disposition: Home, Self-Care Instructions: Psychotic Disorder (ED), Dyspnea (ED) Additional Instructions: Your workup today is reassuring. You were seen and cleared by our care team. You do not meet inpatient level of psych care. Per case management, you are being discharged home with VNA services for prison. You are agreeable with this. Please follow up with all outpatient providers as warranted. Return with new or worsening symptoms. In the case of an emergency call 911. Prescriptions: No Action quetiapine 25 mg tablet 25 mg PO BEDTIME donepezil 10 mg tablet 10 mg PO DAILY gabapentin 400 mg capsule 400 mg PO TID quetiapine 100 mg tablet 100 mg PO BEDTIME acetaminophen 650 mg tablet extended release 650 mg PO DAILY lorazepam 0.5 mg tablet 1 mg PO TID metformin 500 mg tablet extended release 24 hr 500 mg PO BID cholecalciferol (vitamin D3) [Vitamin D3] 10 mcg (400 unit) tablet 20 mcg PO DAILY metoprolol tartrate 25 mg tablet 25 mg PO BID duloxetine 20 mg capsule,delayed release(DR/EC) 20 mg PO BID albuterol sulfate 90 mcg/actuation HFA aerosol inhaler 2 puff inhalation Q4H PRN (Reason: wheezing) Referrals: [facility] [Outside] Print Language: Persian
[2025-01-14 05:28] LABS: Appearance Urine Clear; Color Urine Yellow; Glucose Urine UA Negative (Negative); Leukocyte Esterase Urine Negative (Negative); Nitrite Urine Negative (Negative); PH 5.5 (5.0-9.0); Urine Blood Negative (Negative); Urine Ketones Trace mg/dL (Negative); Urine Protein Trace mg/dL (Neg-Trace)
[2025-01-14 05:33] LABS: Bacteria Urine None Seen (None Seen); Hyaline Casts Urine 0-2 /LPF (0-2); RBC Urine 0-2 /HPF (0-2); Squamous Epithelial Cell Urine 0-2 /HPF (0-2); WBC Urine 0-5 /HPF (0-5)
[2025-01-14 05:39] LABS: Amphetamine Screen Urine Not Detected (Not Detect); Barbiturates, Urine Not Detected (Not Detect); Benzodiazepines Screen Urine Not Detected (Not Detect); Buprenorphine Scr Not Detected (Not Detect); Cannabinoid Screen Urine Not Detected (Not Detect); Cocaine Screen Urine Not Detected (Not Detect); Fentanyl, urine Not Detected (Not Detect); Methadone Screen, Urine Not Detected (Not Detect); Opiate Screen Urine Not Detected (Not Detect); Oxycodone Screen Urine Not Detected (Not Detect); Phencyclidine Screen Urine Not Detected (Not Detect)
--- NOTE | 2025-01-14 10:08 | PC.NURSE ---
Care Team at bedside for eval.
--- NOTE | 2025-01-14 11:04 | PC.NURSE ---
Report received. Taken over care at this time.
--- NOTE | 2025-01-14 11:07 | MHC.CM.PN ---
CM RECEIVED CM ED CONSULT. CM MET WITH PT AT BEDSIDE IN ED. PT IS FROM HOME ALONE. PT USES [facility] FOR MOBILITY. PT STATES SHE HAD MERCH[facility]ISE COLLECTOR HOURS THROUGH [facility] BUT MERCHANDISE COLLECTOR QUIT BECAUSE OF MY MOODS . PT USES HOME 02 VIA [facility]. + HCP ON FILE AND VERIFIED. PCP AT [facility]. DP: PT WILL NEED CARE TEAM EVAL . PT GIVES PERMISSION FOR THIS CM TO CALL HER DAUGHTER BOB. CM WILL CONTINUE TO FOLLOW FOR A PLAN.
--- NOTE | 2025-01-14 16:52 | MHC.CARE ---
Pt seen by CARE team and will be follow up in AM, multiple calls left for both daughters who are HCP and no return phone call has been received to obtain collateral information.See CARE team assessment for additional information.
--- NOTE | 2025-01-14 19:42 | MHC.EDTECH ---
pt asked for hot meal, tray provided, pt stated she cannot chew- missing some teeth, I cut pt chicken and veggies into smaller pieces, pt satisfied.
--- NOTE | 2025-01-15 | ECG_ITS ---
Test Reason : CHEST PAIN Blood Pressure : */* mmHG Vent. Rate : 98 BPM Atrial Rate : 98 BPM P-R Int : 142 ms QRS Dur : 58 ms QT Int : 336 ms P-R-T Axes : 52 57 65 degrees QTcB Int : 428 ms Normal sinus rhythm Septal infarct (cited on or before 17-Jul-2024) Abnormal ECG When compared with ECG of 14-Jan-2025 00:50, No significant change was found Referred By: Renetta Norris Electronically Signed By: EVAN AHMADI
[2025-01-15 06:37] VITALS: BP 152/72; PULSE 96; RESP 14; O2SAT 98
--- NOTE | 2025-01-15 08:22 | MHC.CM.ED ---
Patient remains in ER. Per Care Team, inpatient bed search in progress. Case Management consult deferred at this time.
--- NOTE | 2025-01-15 09:18 | MHC.CM.ED ---
Addendum entered by Betzaida Joe 01/15/25 10:06: Received notification from Lona of Care Team that patient not inpatient level of care and CM consult recommended by Lita refinisher. See Care Team note for more information. Consult for capacity eval and MOCA & ACL assessments ordered by Mara GOMEZ. Original Note: Received notification from Lona of the Care Team that patient is not a inpatient psych level of care. Lona is still trying to find collateral information. Patient's daughter's have not called back. Patient is active with [facility]. Per Dominic, transitions of care nurse, patient had VNA and DINING ROOM HELPER hours. However those authorizations have . 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 Patient's home care music therapist is Radha. She can be reached via telephone at [phone], ext. [phone]. This information was provided to Lona of Care Team.
[2025-01-15 11:08] VITALS: BP 172/67; PULSE 82; RESP 18; TEMP 36.7; O2SAT 95
--- NOTE | 2025-01-15 11:08 | PC.NURSE ---
Report received. Taken over care at this time.
--- NOTE | 2025-01-15 11:11 | PC.NURSE ---
pt has been calm and cooperative for shift 7a-11a, she tolerated her breakfast and has been interacting appropriatly with staff. she offers no complaint, plan is to continue [facility] psych bedsearch, pt has been updated as to plan of care.
--- NOTE | 2025-01-15 13:07 | PHA.MEDREC ---
Addendum entered by Ros Rabago stephanie 01/15/25 15:03: Spoke to belting and webbing inspector Darling and she says she doesn't handle patient medications and patient puts her meds in random locations around the house making it hard to find out what meds she is on. The patient supposedly handles her own meds at home as Darling says her daughters don't want to assist with care and her manager home improvement approvals have through her insurance. Original Note: Pharmacy Consult ? Medication Reconciliation Pharmacy has completed the medication reconciliation. Spoke with patient daughter Michelle to confirm med list, however she states she hasn't seen her mother and is not the person who cares for her. She told me that it is pointless to call her because she has no control when it comes to her mothers care. she then instructed me to call her sister Amanda [phone]. Called and spoke to Patients Daughter Amanda to confirm med list. Nguyen states that she hasn't seen her mother in a few months , due to her being aggressive accusing her of something she didn't do. Amanda states she was under the assumption that her mother had 24 hour nursing and [employer] services. Amanda states patient Nurse is Karina [phone] and [employer] service is Darling [phone]. I called and left message for both to see what medications patient is on. Daughter states patient was in [facility] care back in July 2024 and she believes she is still on the same medications with no change. Utilized claims to confirm med list. Will update with any change if we get a call back.
--- NOTE | 2025-01-15 13:13 | PC.NURSE ---
Pt. cleaned up and gown changed.
[2025-01-15 14:00] VITALS: BP 172/67; PULSE 82; RESP 18; TEMP 36.7; O2SAT 95
--- NOTE | 2025-01-15 17:44 | PC.NURSE ---
Report given to Trinidad RN in overflow, going from ed 18 to room 2.
--- NOTE | 2025-01-15 18:45 | MHC.EDTECH ---
Patient just moved from main ed to ed Overflow ,Patient was moved into a hospital bed for comfort ,New Purewick in Place ,Patient was made comfortable ,vitals taken ,all safety measure in Place ,fresh ice water given ,Patient was set up with dinner ,Call bernstein within Pt reach .
--- NOTE | 2025-01-15 19:08 | MHC.EDTECH ---
Patient smell her dinner and became nauseous ,was not able to eat dinner ,Also Patient said she not able to chew the Pork because it was tough ,RN aware .
[2025-01-15 19:11] VITALS: BP 176/79; PULSE 94; RESP 16; TEMP 37.2; O2SAT 96
--- NOTE | 2025-01-15 19:42 | PC.NURSE ---
Addendum entered by Rajni Barahona RN 01/16/25 06:26: pt is alert and pleasantly confused, able to tell me her name, and where she is but thinks its 2019. pt noted to have another soft small bowel movement, rectal temp of 100.1 and chills. pt denying any pain or any other symptoms at this time. MD Flores aware. Addendum entered by Rajni Barahona RN 01/15/25 21:48: pt had soft bowel movement, changed pt with EDT. Pt noted to be sweating and complaining of intermittent chest pain but denies any other symptoms. VS taken bp noted to be 163/82, POC 132. Pt alert to self, time, situation and place. EKG ordered and taken. Given to DR Flores. Pending new orders at this time. Original Note: assumed care for patient at this time. pt alert and oriented to self place and time, pt complaining of diet and was not able to eat dinner, states because she does not have teeth or dentures she usually eats a softer diet. Diet ordered changed. Swallow eval complete pt passed at this time. gave pt peanut butter and jelly sandwich per pts request. pt tolerated well. pts call bernstein within reach plan of care ongoing.
[2025-01-15 21:18] VITALS: BP 163/82; PULSE 100; RESP 20; TEMP 36.9; O2SAT 96
[2025-01-15 21:43] LABS: Glucose, Whole Blood 132 mg/dL (60-115)
--- NOTE | 2025-01-15 21:50 | MHC.EDTECH ---
Patient was incontinent of large amount of soft bowel movement ,care given bedding change ,Patient became diaferitic ,blood sugar check ,ekg done and was read by Provider ,vitals taken ,cool wash cloth and ice pack Place on Patient ,Patient alert and awake ,Provider made aware and blood work order .All safety measure in Place .
--- NOTE | 2025-01-15 22:03 | MHC.EDTECH ---
Blood drawn and sent to lab .
[2025-01-15 22:10] LABS: MANUAL DIFF FLAG NO
[2025-01-15 22:11] LABS: Basophils Percent Auto 0.2 % (0-2); Eosinophils Percent Auto 0.2 % (0-4); Hematocrit 35.6 % (37.0-47.0); Hemoglobin 11.6 g/dl (12.0-16.0); Imm Gran Abs Auto 0.04 X10*3/uL (0.00-0.03); Imm Gran Pct Auto 0.3 % (0.0-0.4); Lymphocytes Absolute Auto 1.1 X10*3/uL (1.2-4.9); Lymphocytes Percent Auto 8.5 % (20-40); Mean Corpuscular HGB Conc 32.6 g/dl (31.0-35.0); Mean Corpuscular Hemoglobin 25.1 pg (27.0-33.0); Mean Corpuscular Volume 77.1 fL (80.0-98.0); Mean Platelet Volume 9.1 fL (9.4-12.3); Monocytes Absolute Auto 0.7 X10*3/uL (0.1-1.2); Monocytes Percent Auto 5.1 % (2-11); Neutrophils Percent Auto 85.7 % (45-73); Platelet Count 316 X10*3/uL (160-400); Red Blood Count 4.62 X10*6/uL (4.20-5.50); Red Cell Distribution Width 15.2 % (11.0-16.0); White Blood Count 12.8 X10*3/uL (4.8-10.8)
[2025-01-15 22:28] LABS: Alanine Aminotransferase 33 U/L (0-31); Alkaline Phosphatase 65 U/L (39-117); Anion Gap 16 (12-20); Aspartate Amino Transferase 35 U/L (5-31); Bilirubin Total 0.3 mg/dL (0.0-1.0); Blood Urea Nitrogen 16 mg/dL (9-16); Calcium 9.1 mg/dL (8.4-10.2); Carbon Dioxide 25 mmol/L (22-29); Chloride 104 mmol/L (96-108); Creatinine Clr Calc Pharmacy 53.6; Estimated Glomerular Filt Rate > 60; Glucose Random 136 mg/dL (60-115); Lipase 58 U/L (8-78); Potassium 3.7 mmol/L (3.3-5.1); Sodium 141 mmol/L (135-145); Total Protein 6.5 g/dL (6.5-8.0)
[2025-01-15 23:37] VITALS: BP 145/73; PULSE 109; RESP 20; TEMP 36.7; O2SAT 98
[2025-01-16] VITALS (7 sets, daily range): BP systolic 125–147; BP diastolic 56–77; PULSE 81–89; RESP 16–18; TEMP 36.7–37.8; O2SAT 94–97
--- NOTE | 2025-01-16 02:38 | MHC.EDTECH ---
2nd trop drawn and sent to lab .
[2025-01-16 03:05] LABS: Troponin-I High Sensitivity 13.3 ng/L (<3.5-17.0)
--- NOTE | 2025-01-16 06:31 | MHC.EDTECH ---
0600 rounding done ,Patient awake ,vitals taken ,Pt very confused ,and felt warm to touch ,rectal temp done ,was 100.1 ,RN aware ,Patient was soiled with small amount of stool care given ,Patient had not void since pt came over to over flow ,Bladder scan done ,Pt had 97 ml urine in bladder ,RN Aware .Patient drank 180 ml water through out the night .
--- NOTE | 2025-01-16 06:53 | MHC.EDTECH ---
Both sets of blood culture and lactic acid drawn and sent to lab .
[2025-01-16] MEDS: 0.9 % Sodium Chloride 1,000 ML 999 ML IV (07:23)
[2025-01-16] MEDS: Acetaminophen 325 MG TABLET 975 MG PO (07:23)
--- NOTE | 2025-01-16 07:29 | PC.NURSE ---
This Rn assumed care of patient @ 1900
[2025-01-16 07:30] LABS: Lactic Acid 1.1 mmol/L (0.5-2.0)
--- NOTE | 2025-01-16 07:30 | PC.NURSE ---
Patient reports to ED from overflow as sepsis alert, labs previously drawn. Patient temp 100.1, administered tylenol effectiveness pending. 20G in LFA patent currently running NaCl 1 L. Patient presents A&O x 3, Patient able to state that shes in the hospital, why shes in the hospital. Patient noted to have visual hallucinations stating I remember seeing bugs in my nails. Otherwise denies auditory hallucinations. Patient remains [facility] bed [facility]. Plan of care on going.
--- NOTE | 2025-01-16 08:50 | PC.NURSE ---
tylenol given with good effect, rectal temp 99.1. Patient unable to provide clean catch, straight cath tolerated for 100 ml. Yellow urine noted w/o sediment, no odor noted. UA collected. Patient denies urinary s/sx.
[2025-01-16 09:01] LABS: Appearance Urine Cloudy; Color Urine Dark Yellow; Glucose Urine UA 100 mg/dL (Negative); Leukocyte Esterase Urine Negative (Negative); Nitrite Urine Negative (Negative); PH 5.5 (5.0-9.0); Specific Gravity - Urine >= 1.030 (1.005-1.025); UMIC TRIGGER UACC YES; Urine Blood Negative (Negative); Urine Ketones 15 mg/dL (Negative); Urine Protein 30 (1+) mg/dL (Neg-Trace)
--- NOTE | 2025-01-16 09:02 | MHC.CM.ED ---
Addendum entered by Betzaida Joe 01/16/25 15:58: Patient's VETERINARY EPIDEMIOLOGIST, Claire at bedside. Her telephone number is [phone]. Claire will assist transport patient home. Addendum entered by Betzaida Joe 01/16/25 13:15: Received notification from Lea London NP that patient will be able to return home with outpatient services including mental health assistance. Attempted to contact patient's daughter, Michelle, via telephone at [phone]. Left message requesting return telephone call. Spoke with patient's daughter, Nguyen, via telephone at [phone]. ACL & MOCA assessment explained. Lita'sLeaslp findings explained. Nguyen is concerned about patient returning home without services. T/w explained [facility] If [facility] is uanble to accept, another agency will be found. Patient's nurse care manager name and contact info provided to Nguyen so that VETERINARY EPIDEMIOLOGIST hours can be re-established. Nguyen is upset stating patient has overdrawn her bank account, purchased multiple ipads and new phones over the past couple of months and feels patient is unable to return home. T/W re-explained assessment findings. Nguyen is working today and is unable to transport patient home. Met with patient in regards to discharge planning. Patient states her VETERINARY EPIDEMIOLOGIST has her keys. Her name is Claire. Patient is unsure of patient's telephone number at this time. Original Note: Patient remains in ER. OT eval completed. MOCA=. ACL=4.2. Lea London NP aware and will see patient. Continue to monitor for d/c needs.
[2025-01-16 09:21] LABS: Bacteria Urine Trace (None Seen); Hyaline Casts Urine 0-2 /LPF (0-2); Other Crystals Urine Present; RBC Urine 0-2 /HPF (0-2); WBC Urine 0-5 /HPF (0-5)
[2025-01-16 10:21] LABS: Adenovirus PCR Not Detected (Not Detect.); Bordetella parapertussis PCR Not Detected (Not Detect.); Bordetella pertussis PCR Not Detected (Not Detect.); Chlamydia pneumoniae PCR Not Detected (Not Detect.); Coronavirus 229E PCR Not Detected (Not Detect.); Coronavirus HKU1 PCR Not Detected (Not Detect.); Coronavirus NL63 PCR Not Detected (Not Detect.); Coronavirus OC43 PCR Not Detected (Not Detect.); Human metapneumovirus PCR Not Detected (Not Detect.); Influenza A PCR Not Detected (Not Detect.); Influenza B PCR Not Detected (Not Detect.); Mycoplasma pneumoniae PCR Not Detected (Not Detect.); Parainfluenza 1 PCR Not Detected (Not Detect.); Parainfluenza 2 PCR Not Detected (Not Detect.); Parainfluenza 3 PCR Not Detected (Not Detect.); Parainfluenza 4 PCR Not Detected (Not Detect.); RSV PCR Not Detected (Not Detect.); Rhino/Enterovirus PCR Not Detected (Not Detect.)
[2025-01-16 10:42] LABS: Influenza A H1 PCR Not Detected (Not Detect.); Influenza A H1-2009 PCR Not Detected (Not Detect.); Influenza A H3 PCR Not Detected (Not Detect.); SARS-CoV-2 PCR Not Detected (Not Detect.)
--- NOTE | 2025-01-16 14:46 | P.CNPS_ITS ---
History of Present Illness Date of Service: 01/16/2025 Chief Complaint: Flu like sx, NPO, n/v, cough x2 days Sources of Information: patient interviewed, chart reviewed and crisis/core team assessment reviewed HPI Narrative: Ms. Kim is a 74 year-old woman who self presented to [facility] ED reporting cough, weakness, nausea. She reported she has bugs coming down her arms and beneath her fingernails. She was worried she was going to get other people sick. Pertinent labs completed in the ED include: cbc with leukocytosis (WBC 12), microcytic anemia, CMP with no electrolyte abnormalities, BUN 16, Cr 0.83, creatinine clearance 53.6. UA with protein, glucose, ketones 15, no bacteria, no leukocytosis. Respiratory panel was negative. She has been afebrile. O2sat stable >95% on room air. Pt seen in the ED. Pt presents as pleasant and cooperative. She reports she feels weak but better. She reports she still may have bugs beneath her fingernails. She denies SI/HI. She reports fair sleep. No depression nor anxious mood. Psychiatry asked to assess ability to care for herself. She had MOCA completed today scored 15/30 with most impairments in executive function, visuospatial and recall with fairly intact orientation, language rapetition/ naming. ACL is 4.2 showing moderate cognitive impairments. Pt has her own apartment with [employer] services. May qualify for VNA. She does have upcoming appointment with psychiatric prescriber from [facility] on 02/09/2025 at 10:00 am. [facility] Medical History (Updated 01/16/25 @ 15:00 by Lita Chang NP) COPD (chronic obstructive pulmonary disease) Diagnostics Vital Signs (24Hr): Vital Signs - 24 hr 01/15/25 19:11 01/15/25 21:18 01/15/25 23:37 Temperature 98.9 F 98.4 F 98.0 F Pulse Rate 94 100 109 H Respiratory Rate 16 20 20 Blood Pressure 176/79 H 163/82 H 145/73 H Pulse Oximetry 96 96 98 Oxygen Delivery Method Room Air Room Air Room Air 01/16/25 06:30 01/16/25 08:38 01/16/25 10:09 Temperature 100.1 F 99.1 F 100 F Pulse Rate 89 85 Respiratory Rate 18 18 Blood Pressure 147/77 H 140/70 H Pulse Oximetry 96 97 Oxygen Delivery Method Room Air Room Air 01/16/25 11:49 Temperature 99.7 F Pulse Rate Respiratory Rate Blood Pressure Pulse Oximetry Oxygen Delivery Method BMI result Body Mass Index 30.3 Labs 01/15/25 22:03 01/15/25 22:03 Labs: Laboratory Results - last 48 hr 01/15/25 01/15/25 01/16/25 21:29 22:03 02:38 WBC 12.8 H RBC 4.62 Hgb 11.6 L Hct 35.6 L MCV 77.1 L MCH 25.1 L MCHC 32.6 RDW 15.2 Plt Count 316 MPV 9.1 L Immature Gran % (Auto) 0.3 Neut % (Auto) 85.7 H Lymph % (Auto) 8.5 L Weber % (Auto) 5.1 Eos % (Auto) 0.2 Baso % (Auto) 0.2 Lymph # (Auto) 1.1 L Weber # (Auto) 0.7 Eos # (Auto) 0.0 Baso # (Auto) 0.0 Abs Immat Gran (auto) 0.04 H Absolute Neuts (auto) 11.0 H Absolute Nucleated RBC 0.000 Nucleated RBC % (auto) 0.0 Sodium 141 Potassium 3.7 Chloride 104 Carbon Dioxide 25 Anion Gap 16 BUN 16 Creatinine 0.83 Estim Creat Clear Calc 53.6 Estimated GFR > 60 POC Glucose 132 H Random Glucose 136 H Lactic Acid Calcium 9.1 Total Bilirubin 0.3 AST 35 H ALT 33 H Alkaline Phosphatase 65 Troponin I High Sens 12.0 13.3 Total Protein 6.5 Albumin 4.0 Lipase 58 Urine Color Urine Appearance Urine pH Ur Specific Payson Urine Protein Urine Glucose (UA) Urine Ketones Urine Blood Urine Nitrite Ur Leukocyte Esterase Urine RBC Urine WBC Ur Squamous Epith Cells Other Crystals Urine Bacteria Hyaline Casts Respiratory Panel Conte Adenovirus (Rapid PCR) B.pert (TEM-PCR) B.parapertussis DNA PCR C. pneumoniae DNA (PCR) Coronavirus OC43 (PCR) Coronavirus HKU1 (PCR) Coronavirus 229E (PCR) Coronavirus NL63 (PCR) Human Metapneumovir PCR Influenza A (RT-PCR) Influenza A (H1) PCR Influ A (H1/09) PCR Influenza A (H3) PCR Influenza B (RT-PCR) M. pneumoniae (PCR) Parainfluenza 1 (PCR) Parainfluenza 2 (PCR) Parainfluenza 3 (PCR) Parainfluenza 4 (PCR) RSV (PCR) Entero/Rhino (PCR) SARS-CoV-2 RNA (RT-PCR) 01/16/25 01/16/25 01/16/25 06:52 08:30 08:54 WBC RBC Hgb Hct MCV MCH MCHC RDW Plt Count MPV Immature Gran % (Auto) Neut % (Auto) Lymph % (Auto) Weber % (Auto) Eos % (Auto) Baso % (Auto) Lymph # (Auto) Weber # (Auto) Eos # (Auto) Baso # (Auto) Abs Immat Gran (auto) Absolute Neuts (auto) Absolute Nucleated RBC Nucleated RBC % (auto) Sodium Potassium Chloride Carbon Dioxide Anion Gap BUN Creatinine Estim Creat Clear Calc Estimated GFR POC Glucose Random Glucose Lactic Acid 1.1 Calcium Total Bilirubin AST ALT Alkaline Phosphatase Troponin I High Sens Total Protein Albumin Lipase Urine Color Dark Yellow Urine Appearance Cloudy Urine pH 5.5 Ur Specific Payson >= 1.030 H Urine Protein 30 (1+) H Urine Glucose (UA) 100 H Urine Ketones 15 Urine Blood Negative Urine Nitrite Negative Ur Leukocyte Esterase Negative Urine RBC 0-2 Urine WBC 0-5 Ur Squamous Epith Cells 3-5 Other Crystals Present Urine Bacteria Trace Hyaline Casts 0-2 Respiratory Panel Conte See Note Adenovirus (Rapid PCR) Not Detected B.pert (TEM-PCR) Not Detected B.parapertussis DNA PCR Not Detected C. pneumoniae DNA (PCR) Not Detected Coronavirus OC43 (PCR) Not Detected Coronavirus HKU1 (PCR) Not Detected Coronavirus 229E (PCR) Not Detected Coronavirus NL63 (PCR) Not Detected Human Metapneumovir PCR Not Detected Influenza A (RT-PCR) Not Detected Influenza A (H1) PCR Not Detected Influ A (H1/09) PCR Not Detected Influenza A (H3) PCR Not Detected Influenza B (RT-PCR) Not Detected M. pneumoniae (PCR) Not Detected Parainfluenza 1 (PCR) Not Detected Parainfluenza 2 (PCR) Not Detected Parainfluenza 3 (PCR) Not Detected Parainfluenza 4 (PCR) Not Detected RSV (PCR) Not Detected Entero/Rhino (PCR) Not Detected SARS-CoV-2 RNA (RT-PCR) Not Detected Imaging Radiology Impressions: ITS Impressions Chest X-Ray 01/16/25 07:55 IMPRESSION: Mild cardiomegaly. Hyperaeration of the right lung, unchanged No active pulmonary disease. Overall, No change from 01/14/2025. Electronically signed by: Didier Berry MD 01/16/2025 08:12 AM EDT RP Mental Status Exam Mental Status Exam Narrative: Appearance: wearing hospital gown, fair hygiene, in NAD Behavior: cooperative and friendly Psychomotor: no agitation or retardation noted Speech: clear, normal rate/rhythm/volume, spontaneous TP: linear TC: feeling tired, but better physically Mood: better Affect: congruent SI: denies HI: denies VH/AH: delusional paracitosis delusions: delusional paracitosis Medications Allergies Allergies Allergy/AdvReac Type Severity Reaction Status Date / Time oxycodone Allergy Anaphylaxis Verified 01/14/25 00:33 prednisone AdvReac Anaphylaxis Verified 01/14/25 00:33 Assessment & Plan Assessment & Plan (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 Kim is a 74 year-old woman who self presented to [facility] ED initially reporting cough, weakness and nausea. She also presented tiwht delusional parasitosis, which appears to be fairly new symptoms. She does not present with SI/HI. She appears calmer but continues to report that bugs are beneath her fingernails. Delusional parasitosis sometimes occur in setting of other medical conditions such as neuropathy, hyperparathyroidism, B12 and folate deficiencies and diabetes. Note that she does present with microcytic anemia. She does have DM probably neuropathy. Check B12, iron studies, folate, TSH. Can use low dose antipsychotic risperidone 0.5mg po BID, but these symptoms usually related to underlying medical than primarily psychiatric disorder. In terms of her ability to care for herself, she does show vascular pattern of impairment with impairments in executive function and visuospatial impairments along with impairments in recall. Her ACL 4.2 shows moderate cognitive impairments. She can return back home with services including VNA, [employer] services. Her next appointment with psychiatrist at [facility] is on 02/09/2025 at 10:00 am with management psychologist Tea. Pt cleared to discharge back home and follow up with both psychiatric care and PCP Total time managing care of this patient today ____ minutes.
[2025-01-16] MEDS: risperiDONE 0.5 MG TABLET PO (15:44)
--- NOTE | 2025-01-16 15:46 | PC.NURSE ---
Labs obtained/sent to lab prior to d/c. pt leaving ED w/ PCP Claire at this time.
[2025-01-16 16:28] LABS: Estimated Average Glucose 114 mg/dL; Hemoglobin A1C 118.0623 umol/L; Hemoglobin A1c % 5.6 % (<6.0); Total Hemoglobin (HGBA1C) 3091.9365 umol/L
[2025-01-16 17:29] LABS: Iron 35 mcg/dL (30-160); Percent Iron Saturation 13 % (15-50); Total Iron Binding Capacity 276 mcg/dL (228-428); Unsaturated Iron Binding 241 ug/dL
[2025-01-16 18:18] LABS: TSH reflex Free T4 1.68 uIU/mL (0.32-4.0); Vitamin B12 205 pg/mL (200-900)
[2025-01-16 19:51] LABS: Folate 13.2 ng/mL (> or = 4.0)
--- NOTE | 2025-01-17 07:30 | MHC.CM.ED ---
Patient was d/c'd from ER 5/6. No response from [facility]. Referral broadcasted at this time. [facility] is able to accept patient. EVELYN Alfaro TERRI will be made aware.
== END 2025-01-16 16:06 | disposition home or self-care (01) ==
PROVIDERS: Emergency Medicine; Emergency Medicine Emergency Medical Services; Social Worker; Emergency Provider Emergency Medicine Emergency Medical Services; PCP Internal Medicine
DX: F60.0 Paranoid personality disorder (principal); F22 Delusional disorders; R44.1 Visual hallucinations; R06.00 Dyspnea, unspecified; R50.9 Fever, unspecified; R53.1 Weakness; R19.7 Diarrhea, unspecified; R06.02 Shortness of breath; R07.9 Chest pain, unspecified; R05.9 Cough, unspecified; E11.9 Type 2 diabetes mellitus without complications; J44.9 Chronic obstructive pulmonary disease, unspecified; Z99.81 Dependence on supplemental oxygen; Z03.818 Encounter for observation for suspected exposure to other biological agents ruled out; Z79.84 Long term (current) use of oral hypoglycemic drugs; Z79.899 Other long term (current) drug therapy
CPT/HCPCS: 0241U; 36415; 71045; 80053; 80307; 81001; 81003; 82607; 82746; 82947; 83036; 83540; 83605; 83690; 84443; 84484; 85025; 87040; 87633; 93005; 96360; 97165; 99285; S9485

== ENCOUNTER → 2025-01-14 00:40 | Outpatient (BNV) | payer OTHER, SELFPAY | PROVIDERS: Visit Provider Radiology Diagnostic Radiology | DX: R05.9 Cough, unspecified (principal); R06.02 Shortness of breath | CPT/HCPCS: 71045 ==

== ENCOUNTER → 2025-01-14 00:50 | Outpatient (BNV) | payer OTHER, SELFPAY | PROVIDERS: Emergency Provider Emergency Medicine; PCP Internal Medicine; Visit Provider Internal Medicine | DX: R94.31 Abnormal electrocardiogram [ECG] [EKG] (principal); R53.1 Weakness | CPT/HCPCS: 93010 ==

== ENCOUNTER → 2025-01-14 04:07 | Outpatient (BNV) | payer OTHER, SELFPAY | PROVIDERS: Emergency Provider Emergency Medicine Emergency Medical Services; PCP Internal Medicine; Visit Provider Social Worker | DX: F22 Delusional disorders (principal) | CPT/HCPCS: 99285 ==

== ENCOUNTER → 2025-01-15 21:36 | Outpatient (BNV) | payer OTHER, SELFPAY | PROVIDERS: Emergency Provider Emergency Medicine Emergency Medical Services; PCP Internal Medicine; Visit Provider Internal Medicine | DX: I25.2 Old myocardial infarction (principal) | CPT/HCPCS: 93010 ==

== ENCOUNTER → 2025-01-16 06:33 | Outpatient (BNV) | payer OTHER, SELFPAY | PROVIDERS: Emergency Provider Emergency Medicine Emergency Medical Services; PCP Internal Medicine; Visit Provider Radiology Diagnostic Radiology | DX: R05.9 Cough, unspecified (principal); J84.9 Interstitial pulmonary disease, unspecified; R19.7 Diarrhea, unspecified | CPT/HCPCS: 71045 ==